=== PATIENT | female | born 1980 ===

== ENCOUNTER 2020-06-10 01:01 | Emergency (ER) | payer SELFPAY ==
[~2020-06-10] VITALS: Ht 162.6 cm; Wt 98.0 kg
[2020-06-10 01:49] LABS: BASOPHILS % (AUTO) 2 % (0-1); EOSINOPHILS % (AUTO) 2 % (1-7); LYMPHOCYTES % (AUTO) 20 % (22-44); MEAN CORPUSCULAR HEMOGLOBIN 24.1 pg (27.0-34.8); MEAN CORPUSCULAR HGB CONC 31.6 g/dL (32.4-35.8); MEAN PLATELET VOLUME 8.7 fL (7.4-10.4); MONOCYTES % (AUTO) 6 % (2-9); NEUTROPHILS % (AUTO) 71 % (42-75); PLATELET COUNT 326 x10^3/uL (130-400); RED BLOOD COUNT 4.67 x10^6/uL (3.82-5.3)
[2020-06-10 01:56] LABS: ALANINE AMINOTRANSFERASE 18 U/L (12-78); ALBUMIN 3.3 g/dL (3.4-5.0); ANION GAP 6 mmol/L (5-15); CALCIUM 8.7 mg/dL (8.5-10.1); CHLORIDE 108 mmol/L (98-107); CREATININE 0.75 mg/dL (0.55-1.02)
--- NOTE | 2020-06-10 02:06 | NUR ---
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 SENT URINE TO LAB.
[2020-06-10 02:10] LABS: MD SCAN
[2020-06-10 02:13] LABS: ALKALINE PHOSPHATASE 84 U/L (45-117); BILIRUBIN,TOTAL 0.2 mg/dL (0.2-1.0); TOTAL PROTEIN 7.2 g/dL (6.4-8.2)
[2020-06-10 02:33] LABS: MICROSCOPIC INDICATED
--- NOTE | 2020-06-10 03:06 | NUR ---
REPORT GIVEN TO Neli MAZARIEGOS ASKED IF HE HAD FURTHER QUESTIONS, ANSWERED "NO".
[2020-06-10] MEDS ORDERED: ACETAMINOPHEN 500 MG TABLET ONE ×3 (03:48→03:52)
[2020-06-10] MEDS ORDERED: ACETAMINOPHEN 500 MG TABLET PO ONE (04:00)
[2020-06-10 04:03] VITALS: BP 147/58
--- NOTE | 2020-06-10 04:04 | NUR ---
Patient/Caregiver given discharge instructions and they have confirmed that they understand the instructions. Patient ambulatory with steady gait. Pt home with a ride.
== END 2020-06-10 04:12 | disposition home or self-care (01) ==
LOC: ED 03:45
DX: O20.0 Threatened abortion (principal); O34.81 Maternal care for other abnormalities of pelvic organs, first trimester; N83.291 Other ovarian cyst, right side; Z3A.08 8 weeks gestation of pregnancy
CPT/HCPCS: 36415; 76801; 80053; 81001; 84702; 85025; 86901; 87086; 99284